=== PATIENT | female | born 1945 | race Caucasian/White ===

== ENCOUNTER 2025-06-25 12:58 | Outpatient (AMB) | payer MEDICARE, OTHER, SELFPAY ==
--- NOTE | 2025-06-25 13:10 | HO.SPINEOV ---
Vital Signs 06/25/25 13:11 Height 4 ft 11 in Weight 174 lb BMI 35.1 Intake Visit Reasons: Sciatica Intake Note: Ms. Gibbs is here today c/o low back pain. Load Builder Required: No Assessment & Plan Assessment & Plan (1) Lumbar stenosis with neurogenic claudication: Code(s): M48.062 - Spinal stenosis, lumbar region with neurogenic claudication Category: Medical Plan Dear colleague Thank you for referring Steph Gibbs to the office today with a chief complaint of bilateral leg pain HPI: This 80-year-old female developed mild symptoms of neurogenic claudication proximally 5 years ago. Six months ago her symptoms significantly increase with pain radiating down both legs to the outside of her ankles. The pain can alternate. In the last 2 months, she developed proximal leg weakness. The pain is associated with tingling in the legs. She can hardly stand or walk anymore. Initially, I walker would help with walking but currently even that is no longer helpful. She likes to walk in a flexed position. Leaning forward produces some relief. Sitting down or laying down is the best position. She underwent 3 months' course of physical therapy, which she had to stop due to increasing pain. She denies bowel urinary problems. She was recently started her oxycodone 5 mg 1-2 tabs a day for the pain. The following conservative treatment options were tried without success antiinflammatories, tylenol, and physical therapy PMH: Osteoporosis, hypertension, right knee replacement, carpal tunnel release Medications: Lisinopril, Evinity, Tylenol, oxycodone and meloxicam. Allergies: NKDA. Social history: Nonsmoker. Lives alone. Physical Exam: Pleasant female, height 4'11 weight 174 lb. She can reproduce the symptoms that started approximately 30 minutes after standing. She can walk a few steps and then immediately goes into a flexed position in attempt to get prolonged walking. Individual testing of the motor groups shows a grade 3/5 iliopsoas weakness bilaterally. The remainder of the muscle groups are intact. No sensory deficits. Low reflexes. No pathological reflexes. No deficits with the upper extremities. Radiological Studies: MRI done at [facility] on 06/18/2025 shows severe spinal stenosis L3-4, severe bilateral L3 foraminal stenosis. Increased diameter of the facet joints at L3-4, indicative for instability. Severe L4-5 spinal stenosis. In addition, there is moderate spinal stenosis at L1-L2 and L2-L3. A standing dynamic lumbar x-rays today shows a grade 1 spondylolisthesis L3-4 without instability. Impression/Plan: This 80-year-old female is suffering from bilateral neurogenic claudication with paresthesias and weakness caused by severe spinal stenosis at L3-4 and L4-5. She not only has severe pain but also neurological deficits in the form of weakness and paresthesias. I offered her a lumbar decompression of these levels. She is scheduled for 07/29/2025. She had a physical done in March and received a clean bill [employer]. Thank you for allowing me to participate in your patients care. total time spent was 60 minutes in counseling ,coordination of plan, personal review of imaging, surgical decision making and subsequent plan Valeriy Snatos MD, PhD Spine Fellowship Trained Neurosurgeon Director, [facility] Orders: Orders XR lumbar spine 4V min Today M48.062 - Spinal stenosis, lumbar region with neurogenic claudication Coding Level of Care Code New Pt Level 5 (99832) Diagnoses Lumbar stenosis with neurogenic claudication M48.062
[2025-06-25 13:11] VITALS: BMI 35.1
--- OUTSIDE RECORDS SUMMARY | 2025-06-25 15:27 | XMS_ITS | Clinical Summary ---
Author Organization [facility] Address [address] [place] [address] Phone Care Team Providers Care Blue Leather Sorter Name Role Phone Nathalia Samayoa Primary Care Provider [phone] Allergies No known active allergies Medications NAPROXEN SODIUM (ALEVE ORAL) Active cholecalciferol (VITAMIN D3) 25 MCG (1,000 unit) tablet Take 1,000 Units by mouth daily. Active glucosamine 500 mg CapIndications: prn Take 500 mg by mouth 3 (three) times a day. Indications: prn Active acetaminophen (TYLENOL) 500 MG tablet Take 1,000 mg by mouth every 6 (six) hours as needed for pain (specific location in comments). Active Active Problems Problem Noted Date Diagnosed Date Osteoporosis, unspecified os teoporosis type, unspecified pathological fracture presence 05/06/2025 Right carpal tunnel syndrome Encounters Date Type Department Care Team Description 06/18/2025 5:51 PM EST - 06/18/2025 11:59 PM EST Hospital Encounter [address] [address] Nathalia Samayoa PA Discharge Disposition: Home or Self Care 06/12/2025 10:30 AM EST Infusion [facility] [address] [address] Sergio Silva MD Osteoporosis, unspecified osteoporosis type, unspecified pathological fracture presence (Primary Dx) 05/15/2025 10:00 AM EDT Infusion [facility] [address] [address] Sergio Silva MD Osteoporosis, unspecified osteoporosis type, unspecified pathological fracture presence (Primary Dx) 05/13/2025 Procedure Pass [facility], [facility] - [facility] [address] [place] [address] 05/13/2025 Transcribe Orders Virtual Department [address] [place] [id number] Nathalia Samayoa PA Other intervertebral disc degeneration, lumbar region with discogenic back pain and lower extremity pain (Primary Dx) 05/06/2025 Orders Only Virtual Department [address] [place] [id number] Sergio Silva MD Osteoporosis, unspecified osteoporosis type, unspecified pathological fracture presence (Primary Dx) from Last 3 Months Social History Tobacco Use Types Packs/Day Years Used Date Smoking Tobacco: Former Smokeless Tobacco: Never Alcohol Use Standard Drinks/Week Comments Yes 6 (1 standard drink = 0.6 oz pur e alcohol) Education Answer Date Recorded Are you interested in more education? Not on amarilys e 11/18/2022 Are you concerned about learning? Not on file 11/18/2022 No 11/18/2022 No 11/18/2022 Digital Access Answer Date Recorded No 12/19/2022 No 12/19/2022 No 12/19/2022 Reliable internet access at home? Not on file 12/19/2022 Device with a working camera? Not on file Comments No Sex and Gender Information Value Date Recorded Sex Assigned at Female 07/12/2018 11:13 AM EST Legal Sex Female 10:08 PM EDT Gender Identity Female 07/12/2018 11:13 AM EST Sexual Orientation Not on file Last Filed Vital Signs Vital Sign Reading Time Taken Comments Blood Pressure 125/75 06/12/2025 10:32 AM EST Pulse 90 06/12/2025 10:32 AM EST Temperature 36.7 C (98.1 F) 06/12/2025 10:32 AM EST Respiratory Rate 18 06/12/2025 10:3 2 AM EST Oxygen Saturation 94% 06/12/2025 10: 32 AM EST Inhaled Oxygen Concentration - - Weight 81.6 kg (179 lb 12.8 oz) 10/20/2021 9:27 AM EDT Height 152.4 cm (5') 10/20/2021 9:27 AM EDT Body Mass Index 35.11 10/20/2021 9:27 AM EDT Plan of Treatment Upcoming Encounters Date Type Department Care Team (Late st Contact Info) Description 07/10/2025 10:30 AM EST Infusion [facility] [address] [place] [address] Sergio Silva MD [address] [place] [phone] [email or web address] 08/07/2025 10:30 AM EST Infusion [facility] [address] [address] Sergio Silva MD [address] [place] [id number] Health Maintenance Due Date Last Done Comments DEPRESSION SCREENING 1957 SMOKING Hx and SMOKELESS TOBACCO SCREENING 1958 ZOSTER VACCINES (1 of 2) 1995 RSV VACCINE (1 - 1-dose 75+ series) 2020 PNEUMOCOCCAL VACCINES (50+ years) (2 of 2 - PCV) 01/05/2021 01/06/2020 COVID-19 VACCINE ( season) 2025 05/02/2024, 05/20/2023, 05/20/2023, Additional history exists LIPID PANEL 10/28/2027 10/27/2022, 04/0 12/2022, 10/27/2022 Adult Td,Tdap Booster 01/05/2030 01/06/2020 OSTEOPOROSIS SCREENING INITIAL (ONE-TIME) Completed 10/07/2024 INFLUENZA VACCINE Completed 05/12/2025, , 05/20/2023, Additional history exists HEPATITIS A VACCINES Aged Out No long er eligible based on patient's age to complete this topic HIB VACCINES Aged Out No longer eligi ble based on patient's age to complete this topic MENINGOCOCCAL VACCINES (ACWY) Aged Out No longer eligible based on patient's age to complete this topic MENINGOCOCCAL VACCINES (B) Aged Out N o longer eligible based on patient's age to complete this topic Medical Devices Not on file Procedures Procedure Name Priority Date/Time Associated Diagnosis Comments MRI LUMBAR SPINE (NEURO) WITHOUT CONTRAST Routine 06/18/2025 7:46 PM EST Other intervertebral disc degeneration, lumbar region with discogenic back pain and lower extremity pain BD DXA AXIAL (SPINE) WITH HIP Routine 10/07/2024 10:54 AM EDT Age-related osteoporosis without current pathological fracture from Last 3 Months or Most Recently Relevant to Health Maintenance Results * MRI LUMBAR SPINE (NEURO) WITHOUT CONTRAST (06/18/2025 7:46 PM EST) Anatomical Region Laterality Modality L-spine Magnetic Resonan ce 06/23/2025 5:37 PM EST Impressions 06/23/2025 5:52 PM EST 1. Multilevel severe lumbar spondylosis and grade 1 anterolisthesis at L3-4 and L4- 5. 2. Severe spinal canal stenosis with compression of cauda equina nerve roots at L3- 4. 3. Moderate to severe spinal canal stenosis at L1-2 and L4-5. 4. Multilevel severe foraminal stenosis, detailed above. Narrative 06/23/2025 5:52 PM EST MRI LUMBAR SPINE (NEURO) WITHOUT CONTRAST Referring clinician's provided indication for this examination in Epic: Outside Radiology Order; degeneration of intervertebral disc lumbar region TECHNIQUE: MRI LUMBAR SPINE (NEURO) WITHOUT CONTRAST Multi-sequence, multi-planar MRI of the lumbar spine was performed without intravenous contrast. COMPARISON: XR LUMBOSACRAL SPINE 2-3 VIEWS FINDINGS: LUMBAR SPINE: Additional lumbosacral anatomy with partial sacralization of L5. Alignment and Vertebrae: Exaggeration of lumbar lordosis with grade 1 anterolisthesis at L3-4 and L4-5. Dextrocurvature lumbar spine. No compression fracture. Marrow: No bone marrow replacing lesion. Discs and Endplates: Severe degenerative disc disease at L1-2 through L4-5. Endplate edema is most pronounced in the left at L3-4. Conus: The conus is normal in signal and terminates at L1. Soft Tissues: Normal. No prevertebral edema. Other Findings: None. Findings by level: T12-L1: Mild facet arthropathy. No spinal canal stenosis. Mild right foraminal stenosis. L1-L2: Disc osteophyte complex, facet arthropathy, ligamentum flavum thickening. Moderate to severe spinal canal stenosis. Severe left greater than right foraminal stenosis. L2-L3: Disc osteophyte complex, facet arthropathy, ligamentum flavum thickening. Moderate spinal canal stenosis. Moderate to severe right and severe left foraminal stenosis. L3-L4: Grade 1 anterolisthesis, disc bulging, severe facet arthropathy with facet joint effusions, and marked ligamentum flavum thickening. Severe spinal canal stenosis with compression of the cauda equina nerve roots. Severe bilateral foraminal stenosis. L4-L5: Grade 1 anterolisthesis, severe facet arthropathy, ligamentum flavum thickening. Moderate to severe spinal canal and severe bilateral subarticular recess stenosis. Severe right and moderate left foraminal stenosis. L5-S1: Small posterior disc bulge. Mild facet arthropathy. No spinal canal stenosis. Mild right foraminal stenosis. Procedure Note Gregory Oneill MD - 06/23/2025 MRI LUMBAR SPINE (NEURO) WITHOUT CONTRAST Referring clinician's provided indication for this examination in Epic:Outside Radiology Order; degeneration of intervertebral disc lumbarregion TECHNIQUE: MRI LUMBAR SPINE (NEURO) WITHOUT CONTRAST Multi-sequence, multi-planar MRI of the lumbar spine was performed withoutintravenous contrast. COMPARISON: XR LUMBOSACRAL SPINE 2-3 VIEWS FINDINGS: LUMBAR SPINE: Additional lumbosacral anatomy with partial sacralization of L5. Alignment and Vertebrae: Exaggeration of lumbar lordosis with grade 1anterolisthesis at L3-4 and L4-5. Dextrocurvature lumbar spine. Nocompression fracture. Marrow: No bone marrow replacing lesion. Discs and Endplates: Severe degenerative disc disease at L1-2 throughL4-5. Endplate edema is most pronounced in the left at L3-4. Conus: The conus is normal in signal and terminates at L1. Soft Tissues: Normal. No prevertebral edema. Other Findings: None. Findings by level: T12-L1: Mild facet arthropathy. No spinal canal stenosis. Mild rightforaminal stenosis. L1-L2: Disc osteophyte complex, facet arthropathy, ligamentum flavumthickening. Moderate to severe spinal canal stenosis. Severe left greaterthan right foraminal stenosis. L2-L3: Disc osteophyte complex, facet arthropathy, ligamentum flavumthickening. Moderate spinal canal stenosis. Moderate to severe right andsevere left foraminal stenosis. L3-L4: Grade 1 anterolisthesis, disc bulging, severe facet arthropathywith facet joint effusions, and marked ligamentum flavum thickening.Severe spinal canal stenosis with compression of the cauda equina nerveroots. Severe bilateral foraminal stenosis. L4-L5: Grade 1 anterolisthesis, severe facet arthropathy, ligamentumflavum thickening. Moderate to severe spinal canal and severe bilateralsubarticular recess stenosis. Severe right and moderate left foraminalstenosis. L5-S1: Small posterior disc bulge. Mild facet arthropathy. No spinal canalstenosis. Mild right foraminal stenosis. IMPRESSION: 1. Multilevel severe lumbar spondylosis and grade 1 anterolisthesis atL3-4 and L4-5. 2. Severe spinal canal stenosis with compression of cauda equina nerveroots at L3-4. 3. Moderate to severe spinal canal stenosis at L1-2 and L4-5. 4. Multilevel severe foraminal stenosis, detailed above. Nathalia [facility] MR XSPECIALTY Final Re sult * BD DXA AXIAL (SPINE) WITH HIP (10/07/2024 10:54 AM EDT) Anatomical Region Laterality Modality Bone Density Bone Density 10/07/2024 10:5 2 AM EDT Impressions 10/08/2024 11:20 AM EDT Interpretation: Osteoporosis. Narrative 10/08/2024 11:20 AM EDT Referred By: NATHALIA SAMAYOA Indications: Osteoporosis Scanner: [employer] A with serial# of [id number] located at [facility] Bone Density Scan (DXA) 10/07/24 Details of prior DXA scans are available by clicking View Full Report BMD T- Z- Skeletal Site gm/cm2 score score BMD Change Since Prior Scan ------ ----- ----- PA Spine (L1-L4) 0.839 -1.90 0.80 N/A Total Hip (Left) 0.645 -2.40 -0.40 N/A Femoral Neck (Left) 0.603 -2.20 0.10 N/A Total Hip (Right) 0.521 -3.40 -1.40 N/A Femoral Neck (Right) 0.439 -3.70 -1.40 N/A ------ ----- ----- * Denotes significant change when >= 0.022 g/cm2 for the spine, 0.027 g/cm2 for the total hip, 0.029 g/cm2 for the femoral neck. Interpretation: Osteoporosis. Technical Quality: The PA Spine scan was of marginal quality because of scoliosis (which can decrease or increase BMD). FRAX: A FRAX(r) score is not provided because the patient has osteoporosis, which is generally an indication for treatment. Reviewed By: Sheri High MD on 10/08/2024 11:20:57 Additional Information: -World Health Organization criteria classify adults based on lowest T-score at PA spine, hip or forearm: Normal (T-score >= -1.0), Osteopenia (T-score between -1 and -2.5), or Osteoporosis (T-score <= -2.5). At [facility], T-scores are compared to peak bone density of a young white gender matched reference population. - For premenopausal women and men under the age of 50, Z-scores (comparison to age, gender, and ethnicity matched reference population) are used: Above expected range for age (Z-score >= 2.0), Within expected range of age (Z-score 1.9 to -1.9), or Below expected range for age (Z-score <= -2.0). - The Bone Health and Osteoporosis Foundation recommends that treatment be considered in men aged more than 50 years and in postmenopausal women with ANY of the following: Prior hip or vertebral fractures; T-score of <= -2.5 at the PA spine or hip; or 10 year fracture probability by FRAX of >= 3% for the hip or >= 20% for major osteoporotic fracture. - The FRAX algorithm (https://www.светлана.ac.uk/FRAX/tool.aspx) is designed to predict 10-year fracture risk in treatment-naive adults between the ages of 40 and 90. It is not intended to be used in those receiving pharmacologic osteoporosis treatment. - The TBS is derived from the texture of the DXA spine image and has been shown to be related to bone microarchitecture and fracture risk. This data provides information independent of BMD value. It adds to fracture risk assessment with a FRAX adjusted for TBS score. If your patient had a TBS and qualified for a FRAX score, the reported FRAX score has been adjusted for TBS. TBS Score Interpretation 1.350 and greater Normal bone microarchitecture 1.200 to 1.350 Partially degraded bone microarchitecture 1.200 and less Degraded bone microarchitecture - Including race/ethnicity in the generation of T- or Z-scores or in the FRAX calculation is complicated, and currently undergoing active review to ensure that we can give patients the best information on their risk of fracture. - Some prior studies may not be compatible with our comparison software. - Click on View Full Report to see subsequent pages with images and prior bone density results. Procedure Note Sheri High MD - 10/08/2024 Referred By: NATHALIA SAMAYOA Indications: Osteoporosis Scanner: [employer] A with serial# of [id number] located at [facility] Bone Density Scan (DXA) 10/07/24 Details of prior DXA scans are available by clicking View Full Report BMD T- Z- Skeletal Site gm/cm2 score score BMD Change Since Prior Scan ------ ----- PA Spine (L1-L4) 0.839 -1.90 0.80 N/A Total Hip (Left) 0.645 -2.40 -0.40 N/A Femoral Neck (Left) 0.603 -2.20 0.10 N/A Total Hip (Right) 0.521 -3.40 -1.40 N/A Femoral Neck (Right) 0.439 -3.70 -1.40 N/A ------ ----- * Denotes significant change when >= 0.022 g/cm2 for the spine, 0.027g/cm2 for the total hip, 0.029 g/cm2 for the femoral neck. Interpretation: Osteoporosis. Technical Quality: The PA Spine scan was of marginal quality because of scoliosis (which can decrease or increase BMD). FRAX: A FRAX(r) score is not provided because the patient hasosteoporosis, which is generally an indication for treatment. Reviewed By: Sheri High MD on 10/08/2024 11:20:57 Additional Information: -World Health Organization criteria classify adults based on lowestT-score at PA spine, hip or forearm: Normal (T-score >= -1.0), Osteopenia (T-score between -1 and -2.5), or Osteoporosis (T-score <= -2.5). At [facility], T-scores are compared to peak bone density of a young white gender matched reference population. - For premenopausal women and men under the age of 50, Z-scores(comparison to age, gender, and ethnicity matched reference population) are used:Above expected range for age (Z-score >= 2.0), Within expected range of age (Z-score 1.9 to -1.9), or Below expected range for age (Z-score <= -2.0). - The Bone Health and Osteoporosis Foundation recommends that treatment be considered in men aged more than 50 years and in postmenopausal women with ANY of the following: Prior hip or vertebral fractures; T-score of <= -2.5 at the PA spine or hip; or 10 year fracture probability by FRAX of >= 3%for the hip or >= 20% for major osteoporotic fracture. - The FRAX algorithm (https://www.светлана.ac.uk/FRAX/tool.aspx) is designed to predict 10-year fracture risk in treatment-naive adultsbetween the ages of 40 and 90. It is not intended to be used in those receiving pharmacologic osteoporosis treatment. - The TBS is derived from the texture of the DXA spine image and has been shown to be related to bone microarchitecture and fracture risk. This data provides information independent of BMD value. It adds to fracture risk assessment with a FRAX adjusted for TBS score. If your patient had a TBSand qualified for a FRAX score, the reported FRAX score has been adjusted for TBS. TBS Score Interpretation 1.350 and greater Normal bone microarchitecture 1.200 to 1.350 Partially degraded bone microarchitecture 1.200 and less Degraded bone microarchitecture - Including race/ethnicity in the generation of T- or Z-scores or in the FRAX calculation is complicated, and currently undergoing active review to ensure that we can give patients the best information on their risk of fracture. - Some prior studies may not be compatible with our comparison software. - Click on View Full Report to see subsequent pages with images andprior bone density results. IMPRESSION: Interpretation: Osteoporosis. Nathalia QUINTERO BD BONE DENSITY DEXA F inal Result from Last 3 Months or Most Recently Relevant to Health Maintenance Insurance MEDICARE PART A & B MEDICARE ENHANCE SUPPLEMENT MEDICARE PART A & B [facility] MEDICARE ENHANCE SUPPLEMENT [facility] Address: [address] [place] [id number] MEDICARE PART A & B [facility] MEDIC[facility] ENHANCE SUPPLEMENT MEDICARE PART A & B [facility] MEDICARE ENHANCE SUPPLEMENT MEDICARE PART A & B [facility] MEDICARE ENHANCE SUPPLEMENT MEDICARE PART A & B [facility] MEDICARE ENHANCE SUPPLEMENT MEDICARE PART A & B [facility] MEDICARE ENHANCE SUPPLEMENT [facility] Address: [facility] [id number] [place] [address] MEDICARE PART A & [place] [address] [place] [address] MEDICARE ENHANCE SUPPLEMENT MEDICARE PART A & B [facility] MEDICARE ENHANCE SUPPLEMENT [facility] [address] [place] [address] Advance Directives For more information, please contact: [phone] (9AM - 5PM [facility], Monday-Monday) * Full Code (Presumed) (Latest Code Status on File) Date Activated Date Inactivated Comments 05/31/2019 7:46 AM 05/31/2019 1:40 PM Care Teams Blue Leather Sorter Relationship Specialty Start Date End Date Nathalia Samayoa PA [address] [place] [id number] PCP - General 07/27/17 Additional Source Comments The information contained in this document represents components of the legal health record. It is not the complete legal health record.[facility]
--- OUTSIDE RECORDS SUMMARY | 2025-06-25 15:27 | XMS_ITS | Encounter Summary ---
Author Organization [facility] Address [address] [place] [address] Phone Care Team Providers Care Vascular Sonographer Name Role Phone Nathalia Villarreal Primary Care Provider +1- [phone] Encounter Details Date Type Department Care Team (Late st Contact Info) Description 05/27/2019 Prep for Surgery [facility]ics & Sports Medicine [address] [place] [address] Lakeisha Andersen MD [address] [place] [address] Orthopedics & Sports Medicine, [place] [address] miguel Social History Tobacco Use Types Packs/Day Years Used Date Smoking Tobacco: Former Smokeless Tobacco: Never Comments Unknown Sex and Gender Information Value Date Recorded Sex Assigned at Female 07/12/2018 11:13 AM EST Legal Sex Female 10:08 PM EDT Gender Identity Female 07/12/2018 11:13 AM EST Sexual Orientation Not on file documented as of this encounter Plan of Treatment Upcoming Encounters Date Type Department Care Team (Late st Contact Info) Description 07/10/2025 10:30 AM EST Infusion [facility] Medical Infusion Center [address] [place] [address] Sergio Silva MD [address] [place] [address] 08/07/2025 10:30 AM EST Infusion [facility] [address] [place] [address] Sergio Silva MD [address] [place] [address] [email or web address] documented as of this encounter Visit Diagnoses Not on filedocumented in this encounter Care Teams Vascular Sonographer Relationship Specialty Start Date End Date Nathalia Villarreal PA [address] [place] [address] PCP - General 07/27/17 documented as of this encounter Additional Source Comments The information contained in this document represents components of the legal health record. It is not the complete legal health record.[facility]
--- OUTSIDE RECORDS SUMMARY | 2025-06-25 15:27 | XMS_ITS | Encounter Summary ---
Author Organization [facility] Address [address] [place] [address] Phone Care Team Providers Care Chemical Process Operator Name Role Phone Nathalia Villarreal Primary Care Provider +1- [phone] Encounter Details Date Type Department Care Team (Late st Contact Info) Description 05/17/2019 Prep for Surgery [facility] Orthopedics & Sports Medicine [address] [place] [address] Lakeisha Andersen MD [address] [place] [address] Orthopedics & Sports Medicine, [facility] [place] [address] miguel Social History Tobacco Use Types Packs/Day [...] Info) Description 07/10/2025 10:30 AM EST Infusion [facility] Medical Infusion Center [address] [place] [address] Sergio Silva MD [address] [place] [address] 08/07/2025 10:30 AM EST Infusion [facility] [address] [place] [address] Sergio Silva MD [address] [place] [address] [email or web address] documented as of this encounter Visit Diagnoses Not on filedocumented in this encounter Care Teams Chemical Process Operator Relationship Specialty Start Date End Date Nathalia Villarreal PA [address] [place] [address] PCP - General 07/27/17 documented as of this encounter Additional Source Comments The information contained in this document represents components of the legal health record. It is not the complete legal health record.[facility]
--- OUTSIDE RECORDS SUMMARY | 2025-06-25 15:27 | XMS_ITS | Encounter Summary ---
Author Organization [facility] Address [address] [place] [address] Phone Care Team Providers Care Manufacturing Operator Name Role Phone Nathalia Villarreal Primary Care Provider +1- [phone] Encounter Details Date Type Department Care Team (Late st Contact Info) Description 05/31/2019 Procedure Pass [place] Admitting Dept - Virtual Department [address] [place] [address] Social History Tobacco Use Types Packs/Day Years Used Date Smoking Tobacco: Former Smokeless Tobacco: Never Alcohol Use Standard Drinks/Week Comments Yes 6 (1 standard drink = 0.6 oz pur e alcohol) Comments No Sex and Gender Information Value Date Recorded Sex Assigned at Female 07/12/2018 11:13 AM EST Legal Sex Female 10:08 PM EDT Gender Identity Female 07/12/2018 11:13 AM EST Sexual Orientation Not on file documented as of this encounter Plan of Treatment Upcoming Encounters Date Type Department Care Team (Late st Contact Info) Description 07/10/2025 10:30 AM EST Infusion [facility] Medical Infusion Center [address] [place] [address] Sergio Silva MD [address] [place] [address] 08/07/2025 10:30 AM EST Infusion [facility] Medical Infusion Center [address] [place] [address] Sergio Silva MD [address] [place] [address] [email or web address] documented as of this encounter Visit Diagnoses Not on filedocumented in this encounter Care Teams Manufacturing Operator Relationship Specialty Start Date End Date Nathalia Villarreal PA [address] [place] [address] PCP - General 07/27/17 documented as of this encounter Additional Source Comments The information contained in this document represents components of the legal health record. It is not the complete legal health record.[facility]
--- OUTSIDE RECORDS SUMMARY | 2025-06-25 15:28 | XMS_ITS | Encounter Summary ---
Author Organization [facility] Address [address] [facility] [facility] [address] [place] [address] Phone Care Team Providers Care Sales Host Name Role Phone Nathalia Villarreal Primary Care Provider +1- [phone] Encounter Details Date Type Department Care Team (Late st Contact Info) Description 05/13/2025 Procedure Pass [facility], [address] [address] Social History Tobacco Use Types Packs/Day Years [...] Info) Description 07/10/2025 10:30 AM EST Infusion [facility] Infusion Center 30 [place] [address] Sergio Silva MD [address] [place] [address] 08/07/2025 10:30 AM EST Infusion [facility] Infusion Center [address] [place] [address] Sergio Silva MD [address] [place] [phone] documented as of this encounter Visit Diagnoses Not on filedocumented in this encounter Care Teams Sales Host Relationship Specialty Start Date End Date Nathalia Villarreal PA [address] [place] [address] PCP - General 07/27/17 documented as of this encounter Additional Source Comments The information contained in this document represents components of the legal health record. It is not the complete legal health record.[facility]
--- OUTSIDE RECORDS SUMMARY | 2025-06-25 15:28 | XMS_ITS | Encounter Summary ---
Author Organization [facility] Address [address] [facility] [facility] [address] [place] [address] Phone Care Team Providers Care Cable Armorer Operator Name Role Phone Nathalia Villarreal Primary Care Provider +1- [phone] Reason for Referral * MRI/CAT Scan - Closed Specialty Diagnoses / Procedures Referred By Contac t Referred To Contact Radiology Diagnoses Other intervertebral disc degeneration, lumbar region with discogenic back pain and lower extremity pain Procedures MRI Lumbar Spine Nathalia Villarreal PA [address] [place] [address] Phone: tel: fax: Referral ID Status Reason Start Date Expiration Date Visits Re quested Visits Authorized [id number] Closed 05/13/2025 05/13/2026 1 1 Encounter Details Date Type Department Care Team (Latest Contact Info) Description 05/13/2025 Transcribe Orders Virtual Department 30 [place] [address] Nathalia Villarreal PA [address] [place] [address] Other intervertebral disc degeneration, lumbar region with discogenic back pain and lower extremity pain (Primary Dx) Social History Tobacco Use Types Packs/Day Years [...] Info) Description 07/10/2025 10:[address] [facility] Medical Infusion Center [address] [place] [address] Sergio Silva MD [address] [place] [address] 08/07/2025 10:30 AM EST Infusion [facility] Infusion Center [address] [place] [address] Sergio Silva MD [address] [place] [address] documented as of this encounter Results * MRI LUMBAR SPINE (NEURO) WITHOUT [...] severe foraminal stenosis, detailed above. 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 It is not the complete legal health record.[facility]
--- OUTSIDE RECORDS SUMMARY | 2025-06-25 15:28 | XMS_ITS | Encounter Summary ---
Author Organization [facility] Address [address] [facility] [address] [place] [address] Phone Care Team Providers Care Sales And Operations Trainee Name Role Phone Nathalia Samayoa Primary Care Provider +1- [phone] Encounter Details Date Type Department Care Team (Latest Contact Info) Description 04/09/2024 Transcribe Orders Virtual Department [address] [place] [address] Nathalia Samayoa PA [address] [place] [address] Age-related osteoporosis without current pathological fracture (Primary Dx) Social History Tobacco Use Types [...] Info) Description 07/10/2025 10:30 AM EST Infusion [facility] Medical Infusion Center [address] [place] [address] Sergio Silva MD [address] [place] [address] 08/07/2025 10:30 AM EST Infusion [facility] Medical Infusion Center [address] [place] [address] Sergio Silva MD [address] [place] [address] documented as of this encounter Results * BD DXA AXIAL (SPINE) WITH HIP (10/07/2024 10:54 AM EDT) Anatomical Region Laterality Modality Bone Density Bone Density 10/07/2024 10:5 2 AM EDT Impressions 10/08/2024 11:20 AM EDT Interpretation: Osteoporosis. Narrative 10/08/2024 11:20 AM EDT Referred By: NATHALIA SAMAYOA Indications: Osteoporosis Scanner: Stand Offer A with serial# of [id number] located at [facility] Bone Density Scan (DXA) 10/07/24 Details [...] -2.5), or Osteoporosis (T-score <= -2.5). At [facility], T-scores are compared to peak bone [...] Referred By: NATHALIA SAMAYOA Indications: Osteoporosis Scanner: Stand Offer A with serial# of [id number] located at [facility] Bone Density Scan (DXA) 10/07/24 Details [...] -2.5), or Osteoporosis (T-score <= -2.5). At [facility], T-scores are compared to peak bone [...] bone density results. IMPRESSION: Interpretation: Osteoporosis. Nathalia VILLAREAL IMG BD BONE DENSITY DEXA F inal Result documented in this encounter Visit Diagnoses Diagnosis Age-related osteoporosis without current pathological fracture- Primary Age-related osteoporosis without current pathological fracture documented in this encounter Care Teams Sales And Operations Trainee Relationship Specialty Start Date End Date Nathalia Samayoa PA [address] [place] [address] PCP - General 07/27/17 documented as of this encounter Additional Source Comments The information contained in this document represents components of the legal health record. It is not the complete legal health record.[facility]
== END 2025-06-25 14:21 | disposition home or self-care (01) ==
LOC: HO.HNS 12:59
PROVIDERS: Visit Provider Neurological Surgery
DX: M48.062 Spinal stenosis, lumbar region with neurogenic claudication (principal)
CPT/HCPCS: 99205

== ENCOUNTER 2025-06-25 12:58 | Outpatient (REF) | payer MEDICARE, OTHER, SELFPAY ==
--- NOTE | ~2025-06-25 | XR_ITS ---
EXAMINATION: XR LUMBOSACRAL SPINE CLINICAL INFORMATION: M48.062 - Spinal stenosis, lumbar region with neurogenic claudication COMPARISON: None available. TECHNIQUE: Lateral views, neutral, flexion and extension position. AP view. FINDINGS: S-shaped curvature of the thoracolumbar spine with a dextroconvex rotatory component apex at L2-3 and a levoconvex component at T11-T12. Multilevel endplate sclerosis, marginal osteophyte formation and decreased intervertebral disc height throughout the axial skeleton. Grade 1 anterolisthesis at L4-5 without gross motion during flexion and or extension position. No lytic or blastic lesions. No acute cortical disruption. Vascular calcifications, aorta and likely iliac arteries. 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 Grade 1 anterolisthesis L4-5 without instability. Electronically signed by: Mark Redmond MD 06/25/2025 02:12 PM SARAH
== END 2025-06-25 12:59 | disposition home or self-care (01) ==
LOC: HO.HOSX 12:58
PROVIDERS: Visit Provider Neurological Surgery
DX: M48.062 Spinal stenosis, lumbar region with neurogenic claudication (principal)
CPT/HCPCS: 72110

== ENCOUNTER → 2025-06-25 13:46 | Outpatient (BNV) | payer MEDICARE, OTHER, SELFPAY | PROVIDERS: Visit Provider Radiology Diagnostic Radiology | DX: M48.062 Spinal stenosis, lumbar region with neurogenic claudication (principal); M47.815 Spondylosis without myelopathy or radiculopathy, thoracolumbar region | CPT/HCPCS: 72110 ==